=== PATIENT | male | born 1955 ===

== ENCOUNTER 2017-05-10 11:15 | Emergency (ER) | payer BC ==
--- NOTE | 2017-05-10 11:51 | EDM.PDOC ---
ED HPI GENERAL MEDICAL PROBLEM - General Chief Complaint: ENT Problem Stated Complaint: SICK,SINUS COLD Time Seen by Provider: 05/10/17 11:46 Source of Information: Reports: Patient, Family History Limitations: Reports: No Limitations - History of Present Illness INITIAL COMMENTS - FREE TEXT/NARRATIVE: HISTORY AND PHYSICAL: [] 61-year-old male presenting with head cold and sinus pressure History of Present Illness: [Patient has been sick for the last 3-5 days. Having a cough is nonproductive Review of Systems: As per history of present illness and below otherwise all systems reviewed and negative. Past medical history: As per history of present illness and as reviewed below otherwise noncontributory. Surgical history: As per history of present illness and as reviewed below otherwise noncontributory. Social history: No reported history of drug or alcohol abuse. Family history: As per history of present illness and as reviewed below otherwise noncontributory. Physical exam: Alert and oriented male skin is moist and warm, answering questions appropriately in full sentences somewhat hoarse with speaking. HEENT: Atraumatic, normocehpalic, pupils reactive, negative for conjunctival pallor or scleral icterus, mucous membranes moist, throat nasal pharyngeal exudate streaking neck supple, nontender, trachea midline. Exquisitely tender to maxillary sinus bilaterally. Throat is red Lungs: Clear to auscultation, breath sounds equal bilaterally, chest non tender. Heart: S1S2, regular, negative for clicks, rubs, or JVD. Abdomen: Soft, nondistended, nontender. Negative for masses or hepatossplenmegaly. Negative for costovertebral tenderness. Pelvis: Stable nontender. Genitourinary: Deferred. Rectal: Deferred Extremities: Atraumatic, negative for cords or calf pain. Neurovascular unremarkable. Neuro: Awake, alert, oriented. Cranial nerves II through XII unremarkable. Cerebellum unremarkable. Motor and sensory unremarkable throughout. Exam nonfocal. Diagnostics: [] Therapeutics: [] Impression: [Acute sinusitis] Plan: [Discharge to home Rest for the next 48 hours Bactrim DS 1 twice a day 14 days [facility] be [facility] Follow-up with your primary care next week] Definitive disposition and diagnosis as appropriate pending reevaluation and review of above. Onset: Gradual Duration: Day(s): (3), Getting Worse Location: Reports: Head, Face sinus Pain Score (Numeric/FACES): 1 - Related Data Allergies Allergy/AdvReac Type Severity Reaction Status Date / Time EDSON Inhibitors Allergy Swelling Verified 05/10/17 11:41 Home Meds: Home Meds Aspirin 0.5 tab PO DAILY 12/08/13 [History] Chlorthalidone 25 mg PO ACBREAKFAST 12/08/13 [History] cloNIDine HCl [Catapres] 0.2 mg PO BEDTIME 12/08/13 [History] metFORMIN HCl [Glucophage] 2 tab PO QPM 12/08/13 [History] metFORMIN HCl [Glucophage] 500 mg PO QAM 12/08/13 [History] Fenofibrate,Micronized [Fenofibrate] 1 cap PO DAILY 05/10/15 [History] Crandall-3 Acid Ethyl Esters [Lovaza] 2 cap PO BID 11/29/15 [History] Metoprolol Succinate 50 mg PO DAILY 05/10/17 [History] Sulfamethoxazole/Trimethoprim [Bactrim Ds Tablet] 1 each PO BID #28 tablet 05/10 [Rx] Past Medical History HEENT History: Reports: Impaired Vision Other HEENT History: wears glasses Cardiovascular History: Reports: High Cholesterol, Hypertension Respiratory History: Reports: None Gastrointestinal History: Reports: Other (See Below) Genitourinary History: Reports: Renal Calculus Musculoskeletal History: Reports: Fracture Other Musculoskeletal History: hx of fx right hand Neurological History: Reports: Seizure, Other (See Below) Other Neuro History: states he took Dilantin for 8 years after a seizure, has not taken Dilantin since 1991 and has been seizure free Psychiatric History: Reports: None Endocrine/Metabolic History: Reports: Obesity/BMI 30+ Other Endocrine/Metabolic History: states he takes Metformin for weight loss, glucose levels borderline Hematologic History: Reports: Blood Transfusion(s) Oncologic (Cancer) History: Reports: Colon Dermatologic History: Reports: None Other Dermatologic History: Vetiligo - Infectious Disease History Infectious Disease History: Reports: Chicken Pox, Measles, Mumps - Past Surgical History Head Surgeries/Procedures: Reports: None HEENT Surgical History: Reports: Oral Surgery Respiratory Surgical History: Reports: None GI Surgical History: Reports: Colon, Colonoscopy, Hernia, Inguinal, Hernia Repair/Other, Other (See Below) Musculoskeletal Surgical History: Reports: None Oncologic Surgical History: Reports: Other (See Below) Social & Family History - Family History Family Medical History: Noncontributory - Tobacco Use Smoking Status *Q: Never Smoker - Caffeine Use Caffeine Use: Reports: Coffee, Soda - Alcohol Use Days Per Week of Alcohol Use: 0 Number of Drinks Per Day: 0 Total Drinks Per Week: 0 - Recreational Drug Use Recreational Drug Use: No Drug Use in Last 12 Months: No ED ROS ENT - Review of Systems Review Of Systems: ROS reveals no pertinent complaints other than HPI. ED EXAM, ENT - Physical Exam Exam: See Below (See dictation) Course - Vital Signs Last Recorded V/S: Last Vital Signs Temp 37.4 C 05/10/17 11:29 Pulse 95 05/10/17 11:43 Resp 15 05/10/17 11:43 BP 169/111 H 05/10/17 11:43 Pulse Ox 94 L 05/10/17 11:43 Departure - Departure Time of Disposition: 11:49 Disposition: Home, Self-Care 01 Condition: Good Clinical Impression: Sinusitis Qualifiers: Sinusitis location: unspecified location Chronicity: acute Recurrence: non- recurrent Qualified Code(s): J01.90 - Acute sinusitis, unspecified - Discharge Information Prescriptions: Sulfamethoxazole/Trimethoprim [Bactrim Ds Tablet] 1 each PO BID #28 tablet Instructions: Sinusitis, Adult, [id number] Referrals: Mickey Alfaro MD [Primary Care Provider] - Additional Instructions: The following information is given to patients seen in the emergency department who are being discharged to home. This information is to outline your options for follow-up care. We provide all patients seen in our emergency department with a follow-up referral. The need for follow-up, as well as the timing and circumstances, are variable depending upon the specifics of your emergency department visit. If you don't have a primary care physician on staff, we will provide you with a referral. We always advise you to contact your personal physician following an emergency department visit to inform them of the circumstance of the visit and for follow-up with them and/or the need for any referrals to a consulting specialist. The emergency department will also refer you to a specialist when appropriate. This referral assures that you have the opportunity for followup care with a specialist. All of these measure are taken in an effort to provide you with optimal care, which includes your followup. Under all circumstances we always encourage you to contact your private physician who remains a resource for coordinating your care. When calling for followup care, please make the office aware that this follow-up is from your recent emergency room visit. If for any reason you are refused follow-up, please contact the [facility] emergency department at and asked to speak to the emergency department charge nurse. You have been found to have sinusitis while in the emergency department Commend that you rest for the next 48 hours take your antibiotics Medication [facility]
[2017-05-10 12:06] VITALS: BP 130/76
== END 2017-05-10 11:55 | disposition home or self-care (01) ==
LOC: MW.ED 11:15
DX: J01.90 Acute sinusitis, unspecified (principal); I10 Essential (primary) hypertension; E78.00 Pure hypercholesterolemia, unspecified; Z79.82 Long term (current) use of aspirin; Z79.899 Other long term (current) drug therapy; Z88.8 Allergy status to other drugs, medicaments and biological substances
CPT/HCPCS: 99283

== ENCOUNTER 2020-01-13 08:28 | Day surgery (SDC) | payer BC ==
[~2020-01-13 08:28] MED LIST: Glycopyrrolate 0.2 MG/ML SDV ONE; Lactated Ringers 1,000 ML IV SCH; Lidocaine 2% 5 ML SDV ONE; Midazolam 1 MG/ML 2 ML SDV ONE; Propofol 200 MG/20 ML SDV ONE
--- NOTE | 2020-01-13 09:41 | PCM.PREANE ---
Preanesthetic Assessment - Anesthesia/Transfusion/Family Hx Anesthesia History: Prior Anesthesia Without Reaction Other Type of Anesthesia Reaction Comment: DENIES ANY ANESTHESIA PROBLEMS Family History of Anesthesia Reaction: No Transfusion History: Prior Transfusion Without Reaction Intubation History: Unknown - Review of Systems General: No Symptoms Pulmonary: No Symptoms Cardiovascular: No Symptoms Gastrointestinal: Hematochezia, Other (h/o rectal cancer - treated) Neurological: No Symptoms Other: Reports: None - Physical Assessment Vital Signs: Last Vital Signs Temp 36.2 C 01/13/20 09:00 Pulse 68 01/13/20 09:00 Resp 16 01/13/20 09:00 BP 176/98 H 01/13/20 09:00 Pulse Ox 94 L 01/13/20 09:00 Height: 6 ft 1 in Weight: 124.738 kg ASA Class: 2 Mental Status: Alert & Oriented x3 Airway Class: Mallampati = 2 Dentition: Reports: Normal Dentition, Implants (x1 upper front, x2 upper and lower right (back)) Thyro-Mental Finger Breadths: 3 Mouth Opening Finger Breadths: 2 (small mouth) ROM/Head Extension: Full Lungs: Clear to Auscultation, Normal Respiratory Effort Cardiovascular: Regular Rate, Regular Rhythm - Allergies Allergies/Adverse Reactions: Allergies Allergy/AdvReac Type Severity Reaction Status Date / Time EDSON Inhibitors Allergy Swelling Verified 01/09/20 12:35 - Blood Blood Available: No - Anesthesia Plan Pre-Op Medication Ordered: None - Acknowledgements Anesthesia Type Planned: MAC Pt an Appropriate Candidate for the Planned Anesthesia: Yes Alternatives and Risks of Anesthesia Discussed w Pt/Guardian: Yes Pt/Guardian Understands and Agrees with Anesthesia Plan: Yes PreAnesthesia Questionnaire HEENT History: Reports: Impaired Vision Other HEENT History: wears glasses, has Guttata cornea Cardiovascular History: Reports: High Cholesterol, Hypertension Respiratory History: Reports: None Gastrointestinal History: Reports: Other (See Below) (h/o rectal cancer - preopchemo,low anterior resection followed by chemo in , last colonoscopy 4 - 5 years ago was OK) Genitourinary History: Reports: Renal Calculus Other Genitourinary History: has multiple kidney stones- none have passed or caused problems Musculoskeletal History: Reports: Fracture Other Musculoskeletal History: hx of fx right hand Neurological History: Reports: Concussion, Seizure, Other (See Below) Other Neuro History: states he took Dilantin for 8 years after a seizure, has not taken Dilantin since 1991 and has been seizure free ( seizure was possible due to chemical exposure) Psychiatric History: Reports: None Endocrine/Metabolic History: Reports: Obesity/BMI 30+ (BMI 36.3) Other Endocrine/Metabolic History: states he takes Metformin for weight loss, glucose levels borderline Hematologic History: Reports: Anesthesia Reaction, Blood Transfusion(s) Other Hematologic History: when removing the NG tube after Illeostomy reversal an allergic reaction to EDSON inhibitors developed causing angioedema in the face- was reintubated overnight, hx of Factor 5 Leiten Mutation Oncologic (Cancer) History: Reports: Colon Dermatologic History: Other Dermatologic History: Vitiligo - Infectious Disease History Infectious Disease History: Reports: Chicken Pox, Measles, Mumps - Past Surgical History Head Surgeries/Procedures: Reports: None HEENT Surgical History: Reports: Oral Surgery Other HEENT Surgeries/Procedures: dental implants x5 Cardiovascular Surgical History: Reports: None Respiratory Surgical History: Reports: None GI Surgical History: Reports: Colon, Colonoscopy, Hernia, Inguinal, Hernia Repair/Other (umbilical), Other (See Below) Other GI Surgeries/Procedures: hx of Colon Resection, and later ileostomy reversal Male Surgical History: Reports: Vasectomy Endocrine Surgical History: Reports: None Neurological Surgical History: Reports: None Musculoskeletal Surgical History: Reports: None Oncologic Surgical History: Reports: Other (See Below) Other Oncologic Surgeries/Procedures: hx of. colon Resection - SUBSTANCE USE Tobacco Use Status *Q: Never Tobacco User Recreational Drug Use History: No - HOME MEDS Home Medications: Home Meds Aspirin 0.5 tab PO DAILY 12/08/13 [History] Chlorthalidone 25 mg PO ACBREAKFAST 12/08/13 [History] cloNIDine HCL [Catapres] 0.2 mg PO BEDTIME 12/08/13 [History] metFORMIN HCl [Glucophage] 1,000 mg PO QPM 12/08/13 [History] metFORMIN HCl [Glucophage] 500 mg PO QAM 12/08/13 [History] Fenofibrate,Micronized [Fenofibrate] 200 mg PO DAILY 05/10/15 [History] Davilla-3 Acid Ethyl Esters [Lovaza] 2 cap PO BID 11/29/15 [History] Metoprolol Succinate 50 mg PO BEDTIME 05/10/17 [History] Glucosamine/Msm/Chondroitin A [Glucosamine Chondroit MSM Tab] 2 tab PO BID 01/09/20 [History] Magnesium 200 mg PO DAILY 01/09/20 [History] Multivitamin 1 tab PO DAILY 01/09/20 [History] Saw/Vit E/Sod Ghada/Lyc/Beta/Pyg [Prostate Health Caplet] 1 cap PO BID 01/09/20 [History] Ubidecarenone [Co Q-10] 10 mg PO DAILY 01/09/20 [History] atorvaSTATin Calcium [Atorvastatin Calcium] 5 mg PO ASDIRECTED 01/09/20 [History] - CURRENT (IN HOUSE) MEDS Current Meds: Current Medications Lactated Ringer's (Ringers, Lactated) 1,000 mls @ 125 mls/hr IV ASDIRECTED ON LICENSE OF [facility] Last Admin: 01/13/20 09:32 Dose: 125 mls/hr Documented by: Discontinued Medications Glycopyrrolate (Robinul) Confirm Administered Dose 0.2 mg .ROUTE .STK-MED ONE Stop: 01/13/20 07:11 Lidocaine (Xylocaine-Mpf 2%) Confirm Administered Dose 5 ml .ROUTE .STK-MED ONE Stop: 01/13/20 07:11 Midazolam HCl (Versed 1 Mg/Ml) Confirm Administered Dose 2 mg .ROUTE .STK-MED ONE Stop: 01/13/20 07:10 Midazolam HCl (Versed 1 Mg/Ml) Confirm Administered Dose 2 mg .ROUTE .STK-MED ONE Stop: 01/13/20 07:11 Propofol (Diprivan 20 Ml) Confirm Administered Dose 600 mg .ROUTE .STK-MED ONE Stop: 01/13/20 07:10 Propofol (Diprivan 20 Ml) Confirm Administered Dose 200 mg .ROUTE .STK-MED ONE Stop: 01/13/20 07:11
--- NOTE | 2020-01-13 10:50 | PCM.OPNOTE ---
- General Post-Op/Procedure Note Date of Surgery/Procedure: 01/13/20 Operative Procedure(s): Colonoscopy Pre Op Diagnosis: History of rectosigmoid cancer. Rectal bleeding. Post-Op Diagnosis: Diverticulosis Anesthesia Technique: MAC (ASA II) Primary Surgeon: Eduardo Jansen [employer] Service Representative: Yasir Mejia Condition: Good Free Text/Narrative:: DICTATION [id number] CPT CODE [id number]
[2020-01-13] MEDS ORDERED: Lactated Ringers 1,000 ML IV SCH (11:00)
--- NOTE | 2020-01-13 11:05 | PCM.POSTAN ---
POST ANESTHESIA ASSESSMENT - MENTAL STATUS Mental Status: Alert, Oriented - VITAL SIGNS Vital Signs: Last Vital Signs Temp 36.2 C 01/13/20 09:00 Pulse 59 L 01/13/20 10:56 Resp 14 01/13/20 10:56 BP 133/84 01/13/20 10:56 Pulse Ox 93 L 01/13/20 10:56 - RESPIRATORY Respiratory Status: Respiratory Rate WNL, Airway Patent, O2 Saturation Stable - CARDIOVASCULAR CV Status: Pulse Rate WNL, Blood Pressure Stable - GASTROINTESTINAL GI Status: No Symptoms - PAIN Pain Score: 0 - POST OP HYDRATION Hydration Status: Adequate & Stable - OBSERVATIONS Free Text/Narrative:: No anesthesia problems
--- NOTE | 2020-01-13 11:28 | PCM48HPAN ---
Post Anesthesia Note - EVALUATION WITHIN 48HRS OF ANESTHETIC Vital Signs in Normal Range: Yes Patient Participated in Evaluation: Yes Respiratory Function Stable: Yes Airway Patent: Yes Cardiovascular Function Stable: Yes Hydration Status Stable: Yes Pain Control Satisfactory: Yes Nausea and Vomiting Control Satisfactory: Yes Mental Status Recovered: Yes Vital Signs: Last Vital Signs Temp 36.2 C 01/13/20 09:00 Pulse 59 L 01/13/20 10:56 Resp 14 01/13/20 10:56 BP 133/84 01/13/20 10:56 Pulse Ox 93 L 01/13/20 10:56 - COMMENTS/OBSERVATIONS Free Text/Narrative:: No anesthesia problems
[2020-01-13 11:56] VITALS: BP 159/73; PULSE 62
--- NOTE | 2020-01-13 13:14 | OR ---
SURGEON: Eduardo Jansen M.D. DATE OF PROCEDURE: 01/13/2020 OPERATION PERFORMED: Colonoscopy. PRIMARY SURGEON: Eduardo Jansen M.D. ANESTHESIA: MAC ASA CLASSIFICATION: II. PREOPERATIVE DIAGNOSES: 1. Personal history of carcinoma of rectal sigmoid. 2. Rectal bleeding. POSTOPERATIVE DIAGNOSES: 1. Patent anastomosis. 2. Diverticulosis. DESCRIPTION OF PROCEDURE: The patient was taken to the endoscopy room and positioned on the endoscopy table in the left lateral decubitus position. Time-out was called for appropriate identification of the patient and procedure. Monitored anesthesia care was provided. The colonoscope was inserted into the rectum, and we were immediately met with the anastomosis. It was very difficult to see the true outlet of the anastomosis if you will. Once I was able to find that, I was able to maneuver the colonoscope quite easily to the cecum. Once in the cecum, the colonoscope was retroflexed to visualize the ascending colon from below, then straightened, and slowly withdrawn. The cecum, ascending colon, hepatic flexure, transverse colon, splenic flexure, descending colon, and remaining sigmoid colon were fairly well visualized. The prep proximally was only fair, although the mucousy stool could be irrigated and no obvious polyps or tumor masses were identified. The patient did demonstrate significant diverticulosis especially in the lower segment and at the site of his previous anastomosis. The anastomosis was widely patent. Again, severe diverticular changes were noted at the site of anastomosis. The colonoscope was retroflexed to visualize the anal orifice from above. No tumors, polyps, or acute hemorrhoidal changes were noted today. The colonoscope was then straightened, the rectum aspirated, and the colonoscope removed. The patient tolerated the procedure well and was taken to recovery room in stable condition. KULWINDER / RICK /[id number]
== END 2020-01-13 11:35 | disposition home or self-care (01) ==
LOC: MW.SDS 08:28
PROVIDERS: ATTEND Surgery
DX: K57.30 Diverticulosis of large intestine without perforation or abscess without bleeding (principal); E78.00 Pure hypercholesterolemia, unspecified; I10 Essential (primary) hypertension; E66.9 Obesity, unspecified; Z68.36 Body mass index [BMI] 36.0-36.9, adult; Z79.82 Long term (current) use of aspirin; Z79.899 Other long term (current) drug therapy; Z85.048 Personal history of other malignant neoplasm of rectum, rectosigmoid junction, and anus; Z88.8 Allergy status to other drugs, medicaments and biological substances; Z98.890 Other specified postprocedural states
CPT/HCPCS: 45378; J2001; J2250; J2704; J3490; J7120